=== PATIENT | female | born 1965 | race Caucasian/White ===

== ENCOUNTER 2021-02-17 05:31 | Observation (INO) | payer OTHER ==
[2021-02-15 08:31] LABS: BASOPHILS % 0.5 % (0.0-1.0); EOSINOPHILS # (AUTO) 0.2 (0.0-0.4); EOSINOPHILS % 2.8 % (0.0-6.0); HEMATOCRIT 40.8 % (34.2-44.1); HEMOGLOBIN 12.9 g/dL (12.0-16.0); LYMPHOCYTES # (AUTO) 1.9 (1.0-3.2); LYMPHOCYTES % 30.8 % (18.0-39.1); MEAN CORPUSCULAR HEMOGLOBIN 29.5 pg (28-32); MEAN CORPUSCULAR HGB CONC 31.6 g/dL (31-35); MEAN CORPUSCULAR VOLUME 93.2 fL (81-99); MONOCYTES # (AUTO) 0.4 (0.2-0.8); MONOCYTES % 6.3 % (4.4-11.3); NEUTROPHILS # (AUTO) 3.7 (2.1-6.9); NEUTROPHILS % 59.3 % (38.7-80.0); PLATELET COUNT 304 x10e3/uL (140-360); RED BLOOD COUNT 4.38 x10e6/uL (3.6-5.1); RED CELL DISTRIBUTION WIDTH 12.7 % (11.7-14.4)
[2021-02-15 08:54] LABS: ANION GAP 12.3 mmol/L (8-16); CREATININE, SERUM 0.95 mg/dL (0.57-1.11); POTASSIUM 4.3 mmol/L (3.5-5.1)
[2021-02-15 08:55] LABS: INR 0.83; PROTHROMBIN TIME 11.9 seconds (11.9-14.5)
[2021-02-15 08:56] LABS: PARTIAL THROMBOPLASTIN TIME 28.3 seconds (23.8-35.5)
[~2021-02-17] VITALS: Ht 160 cm; Wt 79.4 kg
[~2021-02-17 05:31] MED LIST: CLARINEX-D 121 EACH PO; VASCEPA1 GM PO
[2021-02-17] MEDS ORDERED: BENADRYL25 M1 PO (06:18)
[2021-02-17] MEDS ORDERED: TYLENOL325 MG PO (06:18)
[2021-02-17] MEDS ORDERED: LIDOCAINE 1% W/EPINEPHRINE 20 ML VIAL ONE (06:45)
[2021-02-17] MEDS ORDERED: THROMBIN FOR SOLN 5,000 UNIT VIAL ONE (06:45)
[2021-02-17] MEDS ORDERED: Vancomycin IV 1 GM VIAL ONE ×2 (06:45→07:47)
[2021-02-17] MEDS ORDERED: LIDOCAINE HCL (LTA) 4 ML SOLN ONE (07:27)
[2021-02-17] MEDS ORDERED: ACETAMINOPHEN 1000 MG/100 ML 100 ML IV ONE (07:27)
[2021-02-17] MEDS ORDERED: IBUPROFEN 800MG/ 200ML 200 ML IV ONE (07:28)
[2021-02-17] MEDS ORDERED: SODIUM CHLORIDE 0.9% 250ML 250 ML ONE (07:47)
[2021-02-17] MEDS ORDERED: MAGNESIUM/ALUMINUM/SIMETHICONE 30 ML UDC PO PRN (09:15)
[2021-02-17] MEDS ORDERED: CEPACOL SORE THROAT LOZENGES PO PRN (09:15)
[2021-02-17] MEDS ORDERED: PROMETHAZINE HCL (IM) 25 MG/ML VIAL IM PRN (09:15)
[2021-02-17] MEDS ORDERED: ONDANSETRON HCL INJ 2MG/ML 2ML 2 MG/ML VIAL IV PRN (09:15)
[2021-02-17] MEDS ORDERED: HYDROMORPHONE 2MG/ML 2 MG/ML ML IV PRN (09:15)
[2021-02-17] MEDS ORDERED: ACETAMINOPHEN 325 MG TAB PO PRN (09:15)
[2021-02-17] MEDS ORDERED: MORPHINE SULFATE 5 MG/ML VIAL IM PRN (09:15)
[2021-02-17] MEDS ORDERED: DIPHENHYDRAMINE HCL 25 MG CAP PO PRN (09:15)
[2021-02-17] MEDS ORDERED: HYDROCODON-ACE1 EA12 PO (09:17)
[2021-02-17] MEDS ORDERED: FENTANYL CITRATE/PF 100MCG/2 ML INJ ONE ×2 (09:28→13:10)
[2021-02-17] MEDS ORDERED: HYDROMORPHONE 1MG/1ML INJ ONE (10:00)
[2021-02-17] MEDS ORDERED: PROPOFOL IV EMULSION 10 MG/ML 20 ML VIAL ONE (12:44)
[2021-02-17] MEDS ORDERED: DEXAMETHASONE SOD PHOS INJ 4 MG/ML VIAL ONE (12:44)
[2021-02-17] MEDS ORDERED: LIDOCAINE HCL 2% LOCAL INJ 5 ML SDV VIAL INJ ONE (12:44)
[2021-02-17] MEDS ORDERED: NEOSTIGMINE 1 MG/ML 10ML VIAL ONE (12:44)
[2021-02-17] MEDS ORDERED: ONDANSETRON HCL INJ 2MG/ML 2ML 2 MG/ML VIAL ONE (12:44)
[2021-02-17] MEDS ORDERED: ROCURONIUM BROMIDE 10 MG/ML 5ML VIAL IV ONE (12:44)
[2021-02-17] MEDS ORDERED: SEVOFLURANE INHAL SOLN 250 ML PEN BTL ONE (12:44)
[2021-02-17] MEDS ORDERED: POVIDONE IODINE 0.05% 0.05 % ML PO ONE (12:44)
[2021-02-17] MEDS ORDERED: GLYCOPYRROLATE INJ 0.2 MG/ML VIAL ONE (12:44)
[2021-02-17] MEDS ORDERED: MIDAZOLAM HCL 2 MG/2 ML VIAL ONE (13:10)
[2021-02-17] MEDS ORDERED: CARISOPRODOL 350 MG TAB ONE (13:21)
[2021-02-17] MEDS: OXYCODONE/ACETAMINOPHEN 5-325 1 EACH TABLET PO PRN ×3 (14:55→23:52)
[2021-02-17 15:03] VITALS: BP 138/94
[2021-02-17 15:06] VITALS: BP 138/94
[2021-02-17 15:07] VITALS: BP 138/94
[2021-02-17] MEDS: LACTATED RINGER'S 1,000 ML IV SCH (16:32)
[2021-02-17] MEDS: CARISOPRODOL 350 MG TAB PO PRN ×2 (16:32→20:35)
[2021-02-17] MEDS: Vancomycin IV 1 GM in SODIUM CHLORIDE 0.9% 250ML 250 ML IV SCH (19:00)
[2021-02-17 20:10] VITALS: BP 116/76
[2021-02-17 20:31] VITALS: BP 116/76
[2021-02-17] MEDS ORDERED: ZOLPIDEM TARTRATE 5 MG TAB PO PRN (21:00)
[2021-02-18 00:06] VITALS: BP 118/71
[2021-02-18] MEDS: LACTATED RINGER'S 1,000 ML IV SCH (01:55)
[2021-02-18] MEDS: OXYCODONE/ACETAMINOPHEN 5-325 1 EACH TABLET PO PRN ×2 (04:10→08:14)
[2021-02-18] MEDS: CARISOPRODOL 350 MG TAB PO PRN ×2 (04:11→08:14)
[2021-02-18 05:12] VITALS: BP 99/78
[2021-02-18 07:39] VITALS: BP 116/75
[2021-02-18 08:01] VITALS: BP 116/75
[2021-02-18] MEDS: Vancomycin IV 1 GM in SODIUM CHLORIDE 0.9% 250ML 250 ML IV SCH (08:14)
== END 2021-02-18 10:30 | disposition home or self-care (01) ==
LOC: OR 05:31 → PACU V 09:24 → MED/SURG 13:52
PROVIDERS: ADMIT Neurological Surgery; ATTEND Neurological Surgery
DX: M50.122 Cervical disc disorder at C5-C6 level with radiculopathy (principal); M47.22 Other spondylosis with radiculopathy, cervical region; I34.1 Nonrheumatic mitral (valve) prolapse; Z01.810 Encounter for preprocedural cardiovascular examination; Z01.812 Encounter for preprocedural laboratory examination; Z01.818 Encounter for other preprocedural examination; Z20.822 Contact with and (suspected) exposure to COVID-19; F41.9 Anxiety disorder, unspecified
CPT/HCPCS: 20931; 22551; 22845; 36415; 71046; 80048; 85025; 85610; 85730; 86850; 86900; 88304; 93005; G0378 ×2; J0131; J1100; J1170; J2001; J2250; J2405; J2704; J2710; J3010; J3370 ×2; J7050 ×2; J7121; U0002